=== PATIENT | female | born 1980 | race Two or more races ===

== ENCOUNTER 2019-04-20 08:00 | Outpatient (CLI) | payer OTHER | END 2019-04-20 23:59 | disposition home or self-care (01) | LOC: LAB.WCP 08:00 | PROVIDERS: ATTEND Physician Assistant | DX: Z33.1 Pregnant state, incidental (principal) | CPT/HCPCS: 36415; 84702 ==

== ENCOUNTER 2019-05-09 07:03 | Outpatient (CLI) | payer OTHER ==
--- NOTE | 2019-05-11 09:45 | Ultrasound Report ---
Reason: Procedure Date: 05/09/2019 Accession Number: [id number] / [id number] Procedure: US - OB Detailed Eval CPT Code: FULL RESULT: EXAM: COMPLETE OBSTETRICAL ULTRASOUND EXAM DATE: 05/09/2019 07:00 AM. CLINICAL HISTORY: anatomic survey. COMPARISON: None. TECHNIQUE: Real-time sonographic evaluation of the fetus performed by the ramp manager. Multiple circulation sales representative static images were saved for review. DATING: Established EGA 23 weeks 2 days with MANUEL 09/03/2019 based on provider stated and LMP. EGA 19 weeks 6 days with MANUEL 09/27/2019 based on the current ultrasound. GENERAL EVALUATION Castillo . Cardiac activity: 155 bpm. movement: Visualized. Presentation: Cephalic. Placenta: Anterior right position. No evidence for previa. Umbilical cord: 3 vessel cord. Central placental cord origin. Amniotic fluid: Subjectively normal. MVP 5.1 cm. Four-quadrant CARMITA 12.3 cm. BIOMETRY Bi-Parietal Diameter (BPD): 4.55 cm, 19 weeks 5 days Head Circumference (HC): 17.18 cm, 19 weeks 5 days Abdominal Circumference (AC): 14.99 cm, 20 weeks 2 days Femur Length (FL): 3.15 cm, 19 weeks 6 days Estimated Weight: 326 g, <3 percentile for 23 weeks 2 days (assigned). Note: Estimated weight of 326 gm is at the 38th percentile using 19 weeks 6 days (biometry by ultrasound today). ANATOMY The intracranial structures, profile, face/nose/lips, spine, 4 chamber heart and outflow tracts, stomach, abdominal wall and cord insertion, diaphragm, kidneys, bladder, and extremities were visualized and demonstrate no abnormality. MATERNAL STRUCTURES Uterus: Unremarkable. Cervix: Long and closed. Transabdominal length 5.3 cm. Right ovary/adnexa: Unremarkable. Left ovary/adnexa: Unremarkable. Free fluid: None. IMPRESSION: 1. Castillo live intrauterine with gestational age 23 weeks 2 days based on provider stated/LMP. Assigned dates are discordant with today's biometry by ultrasound which is delayed by 3 weeks 3 days, favoring incorrect dates. 2. Estimated weight is less than 3rd percentile for assigned dating. Estimated weight is at the 38th percentile using 19 weeks 6 days (biometry by US today). 3. Normal anatomic survey. No anatomic abnormalities are detected at this time. RADIA
== END 2019-05-09 07:04 | disposition home or self-care (01) ==
LOC: DI 07:03
PROVIDERS: ATTEND Obstetrics & Gynecology
DX: Z34.90 Encounter for supervision of normal pregnancy, unspecified, unspecified trimester (principal)
CPT/HCPCS: 76811

== ENCOUNTER 2019-05-16 08:00 | Outpatient (CLI) | payer OTHER ==
[2019-05-16 14:31] LABS: MUDS CUTOFF CONCENTRATIONS CUTOFF CONC BELOW:
[2019-05-16 14:57] LABS: BILIRUBIN,URINE NEGATIVE (NEGATIVE); GLUCOSE, URINE (UA) NEGATIVE (NEGATIVE); KETONES,URINE (UA) NEGATIVE (NEGATIVE); LEUKOCYTE ESTERASE, URINE NEGATIVE (NEGATIVE); NITRITE,URINE NEGATIVE (NEGATIVE); OCCULT BLOOD,URINE NEGATIVE (NEGATIVE); PROTEIN,URINE NEGATIVE (NEGATIVE); UROBILINOGEN,URINE 0.2 (NORMAL) E.U./dL (NORMAL)
[2019-05-16 15:03] LABS: CLARITY,URINE CLEAR (CLEAR)
[2019-05-16 15:08] LABS: AMPHETAMINE SCREEN,URINE NEGATIVE (NEGATIVE); BENZODIAZEPINES SCREEN, URINE NEGATIVE (NEGATIVE); COCAINE SCREEN URINE NEGATIVE (NEGATIVE); METHADONE SCREEN, URINE NEGATIVE (NEGATIVE); METHAMPHETAMINES SCREEN, URINE NEGATIVE (NEGATIVE); OPIATE SCREEN, URINE NEGATIVE (NEGATIVE); OXYCODONE SCREEN, URINE NEGATIVE (NEGATIVE); PROPOXYPHENE SCREEN, URINE NEGATIVE (NEGATIVE); TRICYCLIC ANTIDEPRESSANT,URINE NEGATIVE (NEGATIVE)
[2019-05-16 15:32] LABS: BACTERIA,URINE None Seen /HPF (None Seen); RBC,URINE None Seen /HPF (0-5); SQUAMOUS EPITHELIAL CELL,UR FEW Squamous (<= Few)
== END 2019-05-16 23:59 | disposition home or self-care (01) ==
LOC: LAB.R 08:00
PROVIDERS: ATTEND Obstetrics & Gynecology
DX: Z36.89 Encounter for other specified antenatal screening (principal)
CPT/HCPCS: 80306; 81001; 87086

== ENCOUNTER 2019-05-16 08:00 | Outpatient (CLI) | payer OTHER ==
[2019-05-16 22:34] LABS: TRICHOMONAS VAGINALIS DNA NEGATIVE (NEGATIVE)
== END 2019-05-16 23:59 | disposition home or self-care (01) ==
LOC: LAB.R 08:00
PROVIDERS: ATTEND Obstetrics & Gynecology
DX: Z36.89 Encounter for other specified antenatal screening (principal)
CPT/HCPCS: 87491; 87591; 87661

== ENCOUNTER 2019-05-16 12:26 | Outpatient (CLI) | payer OTHER ==
[2019-05-16 13:00] LABS: BASOPHILS # (AUTO) 0.1 10^3/uL (0.0-0.1); BASOPHILS % (AUTO) 0.4 %; EOSINOPHILS % (AUTO) 0.2 %; HGB - HEMOGLOBIN 13.1 g/dL (12.0-16.0); LYMPHOCYTES # (AUTO) 1.5 10^3/uL (1.5-3.5); MEAN CORPUSCULAR HEMOGLOBIN 29.9 pg (27.0-31.0); MEAN CORPUSCULAR HGB CONC 34.1 g/dL (32.0-36.0); MEAN CORPUSCULAR VOLUME 87.7 fL (81.0-99.0); MEAN PLATELET VOLUME 9.9 fL (7.9-10.8); MONOCYTES # (AUTO) 0.8 10^3/uL (0.0-1.0); NEUTROPHILS # (AUTO) 10.4 10^3/uL (1.5-6.6); NEUTROPHILS % (AUTO) 80.9 %; PLT - PLATELET COUNT 206 10^3/uL (130-450); RED BLOOD COUNT 4.38 10^6/uL (4.20-5.40); RED CELL DISTRIBUTION WIDTH 13.5 % (12.0-15.0); WHITE BLOOD COUNT 12.8 x10^3/uL (4.8-10.8)
[2019-05-17 11:48] LABS: HEPATITIS B SURFACE ANTIGEN NON-REACTIVE (NON-REACTIVE); HEPATITIS C ANTIBODY NON-REACTIVE (NON-REACTIVE)
[2019-05-17 14:15] LABS: HIV AG/AB 4TH GEN NON-REACTIVE (NON-REACTIVE)
== END 2019-05-16 12:27 | disposition home or self-care (01) ==
LOC: LAB 12:26
PROVIDERS: ATTEND Obstetrics & Gynecology
DX: Z36.89 Encounter for other specified antenatal screening (principal)
CPT/HCPCS: 36415; 80306; 81001; 81003; 81599; 85025; 86592; 86762; 86803; 86850; 86900; 86901; 87086; 87340; 87389; 87491; 87591; 87661

== ENCOUNTER 2019-06-28 07:21 | Outpatient (CLI) | payer OTHER ==
[2019-06-28 09:00] LABS: HGB - HEMOGLOBIN 12.4 g/dL (12.0-16.0); MEAN CORPUSCULAR HEMOGLOBIN 29.2 pg (27.0-31.0); MEAN CORPUSCULAR HGB CONC 33.2 g/dL (32.0-36.0); MEAN CORPUSCULAR VOLUME 88.2 fL (81.0-99.0); MEAN PLATELET VOLUME 10.5 fL (7.9-10.8); RED BLOOD COUNT 4.24 10^6/uL (4.20-5.40); RED CELL DISTRIBUTION WIDTH 13.8 % (12.0-15.0); WHITE BLOOD COUNT 11.8 x10^3/uL (4.8-10.8)
[2019-06-28 11:26] LABS: HB2 TOTAL 12.7 g/dL; HEMOGLOBIN A1C 0.49 g/dL; HEMOGLOBIN A1C % 5.7 % (4.6-6.2)
== END 2019-06-28 07:22 | disposition home or self-care (01) ==
LOC: LAB 07:21
PROVIDERS: ATTEND Obstetrics & Gynecology
DX: O99.810 Abnormal glucose complicating pregnancy (principal); Z3A.00 Weeks of gestation of pregnancy not specified
CPT/HCPCS: 36415; 82950; 83036; 85027

== ENCOUNTER 2019-07-08 07:51 | Outpatient (CLI) | payer OTHER | END 2019-07-08 07:52 | disposition home or self-care (01) | LOC: LAB 07:51 | PROVIDERS: ATTEND Obstetrics & Gynecology | DX: R73.02 Impaired glucose tolerance (oral) (principal) | CPT/HCPCS: 36415; 82951; 82952 ==

== ENCOUNTER 2019-08-30 08:00 | Outpatient (CLI) | payer OTHER ==
[2019-08-30 20:50] LABS: TRICHOMONAS VAGINALIS DNA NEGATIVE (NEGATIVE)
== END 2019-08-30 23:59 | disposition home or self-care (01) ==
LOC: LAB.R 08:00
PROVIDERS: ATTEND Nurse Practitioner Obstetrics & Gynecology
DX: Z36.85 Encounter for antenatal screening for Streptococcus B (principal); Z36.89 Encounter for other specified antenatal screening
CPT/HCPCS: 87491; 87591; 87661; 87797

== ENCOUNTER 2019-10-01 11:51 | Outpatient (CLI) | payer OTHER ==
[2019-10-01 12:18] VITALS: BP 137/80
--- NOTE | 2019-10-01 23:55 | PROVIDER PROGRESS NOTE ---
- HPI Current : Current EDU 09/27/19 Gestation 40 Weeks and 4 Days 1 Para 0 Vital Signs Temperature 98.6 F 10/01/19 12:05 Heart Rate 76 10/01/19 12:05 Respiratory Rate 18 10/01/19 12:05 Blood Pressure 138/90 H 10/01/19 12:05 Temperature 98.6 F 10/01/19 12:05 Heart Rate 76 10/01/19 12:05 Respiratory Rate 18 10/01/19 12:05 Blood Pressure 137/80 H 10/01/19 12:17 O2 Saturation - Exam GEN: mild distress ABD: gravid, S&NT/ND NEURO: A&O PSYCH: interactive affect Cervical exam: 0.5/20/-3 per RN exam EFM 130 mod [place] 15x15 accels no decels TOCO: Q10 min - Procedures NST Procedure: Cat I tracing Service Date of procedure: 10/01/19 Findings: Early labor Cat I tracing - Plan Plan: Declined therapeutic rest Declined admission for augmentation; desires natural progression Cat I tracing Early/threatened labor Discharged to home w/ warning signs reviewed
== END 2019-10-01 13:00 | disposition home or self-care (01) ==
LOC: WFO 11:51 → FBP 11:53 → WFO 13:00
PROVIDERS: ATTEND Obstetrics & Gynecology
DX: O47.03 False labor before 37 completed weeks of gestation, third trimester (principal); Z3A.40 40 weeks gestation of pregnancy
CPT/HCPCS: 99212; 99213

== ENCOUNTER 2019-10-02 08:32 | Inpatient (IN) | payer OTHER ==
[2019-10-02] MEDS ORDERED: OXYTOCIN/SODIUM CHLORIDE 500 ML IV PRN (11:51)
[2019-10-02] MEDS ORDERED: METOCLOPRAMIDE 10 MG TABLET PO PRN (11:51)
[2019-10-02] MEDS ORDERED: METHYLERGONOVINE 0.2 MG/ML VIAL IM PRN (11:51)
[2019-10-02] MEDS ORDERED: CARBOPROST TROMETHAMINE 250 MCG/ML AMP IM PRN (11:51)
[2019-10-02] MEDS ORDERED: ONDANSETRON ODT 4 MG TABLET TL PRN (11:51)
[2019-10-02] MEDS ORDERED: SODIUM CHLORIDE FLUSH 0.9% 10 ML SYRINGE IVP PRN (11:51)
[2019-10-02] MEDS ORDERED: METOCLOPRAMIDE 10 MG/2 ML VIAL IVP PRN ×2 (11:51→15:51)
[2019-10-02] MEDS ORDERED: ONDANSETRON 4 MG/2 ML VIAL IVP PRN ×2 (11:51→15:51)
[2019-10-02 11:59] LABS: BASOPHILS % (AUTO) 0.2 %; HGB - HEMOGLOBIN 11.8 g/dL (12.0-16.0); LYMPHOCYTES # (AUTO) 1.1 10^3/uL (1.5-3.5); LYMPHOCYTES % (AUTO) 7.4 %; MEAN CORPUSCULAR HEMOGLOBIN 27.6 pg (27.0-31.0); MEAN CORPUSCULAR HGB CONC 33.7 g/dL (32.0-36.0); MEAN CORPUSCULAR VOLUME 81.8 fL (81.0-99.0); MEAN PLATELET VOLUME 11.6 fL (7.9-10.8); MONOCYTES # (AUTO) 0.9 10^3/uL (0.0-1.0); MONOCYTES % (AUTO) 5.9 %; NEUTROPHILS # (AUTO) 12.7 10^3/uL (1.5-6.6); PLT - PLATELET COUNT 152 10^3/uL (130-450); RED BLOOD COUNT 4.28 10^6/uL (4.20-5.40); RED CELL DISTRIBUTION WIDTH 17.2 % (12.0-15.0); WHITE BLOOD COUNT 14.8 x10^3/uL (4.8-10.8)
[2019-10-02] MEDS ORDERED: OXYTOCIN/SODIUM CHLORIDE 500 ML IV SCH (12:00)
[2019-10-02] MEDS ORDERED: miSOPROStoL 200 MCG TABLET PR ONE (12:00)
--- NOTE | 2019-10-02 12:07 | HISTORY & PHYSICAL EXAMINATION ---
Admit History - : 1 Parity: 0 Care: positive: [facility] Risk/History: positive: None Complications This : positive: None Smoking Status: Never smoker - Mother's Labs Mother's Blood Type: positive: O Mother's RH: positive: Positive GBS: positive: Group B Step Negative Rubella Status: positive: Equivocal - Other Maternal History Other Maternal History: Patient is a 38 yo who presented with painful contractions at 40+5 wga Has had prodromal labor for several days. Initial SVE was 270/-3. Given pending post-dates status, as well as level of discomfort and prolonged latent stage, she was offered admission for cervical ripening/induction. She is willing to be admitted for this purpose. No LOF or VB. Endorses FM. has been complicated by unsure dating ( based on 19w6d us) abnormal glucola with normal 3H OGTT and equivocal immune stats. She is GBS negative and Rh positive. MANUEL 09/27/19 based on 19 weeks us LMP 11/27/2018---> MANUEL 09/03/19 US on 05/09/19 at 19w6d --> MANUEL 09/27/19 (definitive) O pos/equivocal rubella status FAS 3VC/anterior/wnl/36%ile Glucola 182 3H GTT 152 168 137 GBS neg HIV neg RPR neg GCCT neg/neg HepBsAg neg TDaP 129/19 Flu declined HSV: denies Meds/Allgy - Allergies Allergies/Adverse Reactions: Allergies Allergy/AdvReac Type Severity Reaction Status Date / Time No Known Drug Allergies Allergy Verified 10/02/19 12:07 Review of Systems - Other Findings Other Findings: As per HPI, remaining systems are normal Physical - Abdominal Exam Vital Signs: Temp Pulse Resp BP Pulse Ox 97.7 F 96 17 137/85 H 100 10/02/19 11:45 10/02/19 11:45 10/02/19 11:45 10/02/19 11:45 10/02/19 11:45 Contraction Frequency (min/apart): Q7-10 min Contraction Intensity: positive: Moderate - Monitoring Heart Rate Baseline: 125 mod [place] 15x15 accels no decels Strip Review: positive: Category I - Presentation Presentation: positive: Vertex - Vaginal Exam Membranes: positive: Membranes intact Dilation (in cm): 2 at intake; 3.5 with placement of Beatty balloon Effacement (%): 90 Station: positive: -2 Cervical Position: positive: Midposition - Speculum Exam Speculum Exam Performed: positive: No - Other Notes Labor Progress Note/Additional Text: Patient continued to contract painfully with infrequent contractions. Agreed to Beatty balloon placement SVE 3.5/90/-2 Beatty placed with 60 cc NS in uterine and vaginal balloons. Catheter placed on tension Plan for Labor - Plan For Labor Plan for Labor: IOL: 38 yo at 40+4 wga Cervical ripening with Beatty balloon placed Will likely meet criteria for pitocin once balloon falls out GBS negative FWB: vertex, appropriately grown, GBS neg, Cat I tracing - Cont for 1 hour post balloon placement then intermittent PAIN: Wants to avoid intervention -Epidural upon patient request -Fentanyl to max dose of 200 mcg and not after 7 cm dilation Admit to observation for cervical ripening Transition to in-patient with active or ruptured. Needs MMR post-delivery
[2019-10-02] MEDS ORDERED: ROPIVACAINE 0.2% 200 MG/100 ML BAG EP ONE (15:10)
[2019-10-02] MEDS ORDERED: LIDOCAINE-MPF 1% 30 ML VIAL ONE (15:10)
[2019-10-02] MEDS ORDERED: fentaNYL 100 MCG/2 ML VIAL ONE (15:16)
[2019-10-02] MEDS ORDERED: diphenhydrAMINE INJ 50 MG/ML VIAL IVP PRN (15:51)
[2019-10-02] MEDS ORDERED: NALOXONE 0.4 MG/ML VIAL IVP PRN (15:51)
[2019-10-02] MEDS ORDERED: LACTATED RINGERS 500 ML IV ONE (15:51)
[2019-10-02] MEDS ORDERED: ePHEDrine 50 MG/ML VIAL IVP PRN (15:51)
[2019-10-02] MEDS ORDERED: ROPIVACAINE 0.2% 200 MG/100 ML BAG EP PRN (15:51)
[2019-10-02] MEDS ORDERED: NALBUPHINE 10 MG/ML AMP IVP PRN (15:51)
[2019-10-02] MEDS: LACTATED RINGERS 1,000 ML IV SCH ×2 (16:44→18:32)
[2019-10-02] MEDS ORDERED: SODIUM CHLORIDE FLUSH 0.9% 10 ML SYRINGE IVP SCH (17:00)
--- NOTE | 2019-10-02 19:01 | PROVIDER PROGRESS NOTE ---
Subjective - Prog Note Date Prog Note Date: 10/02/19 Prog Note Time: 18:54 - Subjective Subjective: Received telephone update regarding patient's EFM and presented at bedside. Patient underwent epidural placement with Beatty insertion. After catheterizat ion, baby had brief decel and then became tachycardic with baseline in the 160s. Retained moderate variability with recurrent late appearing decels. TOCO showed ctx to be Q7-8 cm Maternal temp wnl althoough showing rigors. SVE 6/90/-2, stretchy with suspected OP position given position high on pubic bone with ample posterior space. Had fluid bolus 500 cc LR with no relief of tachycardia. AROM with passage of clear fluid. Cont fluid bolus Return to baseline of 150s, moderate variability, accels. Possibly early appearing decels TOCO now showing ctx Q6 Once tracing remains stable over extended period of time, will start pitocin to advance labor. Reviewed possible position changes to facilitate positioning Objective - Vital Signs/Intake & Output Vital Signs: Vital Signs x48h Temp Pulse Resp BP Pulse Ox 10/02/19 11:45 97.7 F 96 17 137/85 H 100 Intake & Output: Intake & Output 09/29/19 09/30/19 10/01/19 10/02/19 23:59 23:59 23:59 23:59 Intake Total 180 Output Total 100 Balance 80 - Lab Results Fish Bones: 10/02/19 11:15 Other Labs: Lab Results x24hrs 10/02/19 Range/Units 11:15 WBC 14.8 H (4.8-10.8) x10^3/uL RBC 4.28 (4.20-5.40) 10^6/uL Hgb 11.8 L (12.0-16.0) g/dL Hct 35.0 L (37.0-47.0) % MCV 81.8 (81.0-99.0) fL MCH 27.6 (27.0-31.0) pg MCHC 33.7 (32.0-36.0) g/dL RDW 17.2 H (12.0-15.0) % Plt Count 152 (130-450) 10^3/uL MPV 11.6 H (7.9-10.8) fL Neut # (Auto) 12.7 H (1.5-6.6) 10^3/uL Lymph # (Auto) 1.1 L (1.5-3.5) 10^3/uL [place] # (Auto) 0.9 (0.0-1.0) 10^3/uL Eos # (Auto) 0.0 (0.0-0.7) 10^3/uL Baso # (Auto) 0.0 (0.0-0.1) 10^3/uL Absolute Nucleated RBC 0.00 x10^3/uL Nucleated RBC % 0.0 /100WBC
--- NOTE | 2019-10-02 21:29 | PROVIDER PROGRESS NOTE ---
Subjective - Prog Note Date Prog Note Date: 10/02/19 Prog Note Time: 21:28 - Subjective Subjective: Comfortable with epidural Prior tachycardia resolved; EFM 145 mod [place] 15x15 accels no decels TOCO: Q4-5 min No augmentation at present SVE 7/C/0 Small increase in dialtion but progress in terms of station and effacement Consider augmentation if without significant change at next exam Objective - Vital Signs/Intake & Output Vital Signs: Vital Signs x48h Temp Pulse Resp BP 10/02/19 19:00 98.6 F 92 16 133/87 H Intake & Output: Intake & Output 09/29/19 09/30/19 10/01/19 10/02/19 23:59 23:59 23:59 23:59 Intake Total 580 Output Total 100 Balance 480 - Lab Results Fish Bones: 10/02/19 11:15 Other Labs: Lab Results x24hrs 10/02/19 Range/Units 11:15 WBC 14.8 H (4.8-10.8) x10^3/uL RBC 4.28 (4.20-5.40) 10^6/uL Hgb 11.8 L (12.0-16.0) g/dL Hct 35.0 L (37.0-47.0) % MCV 81.8 (81.0-99.0) fL MCH 27.6 (27.0-31.0) pg MCHC 33.7 (32.0-36.0) g/dL RDW 17.2 H (12.0-15.0) % Plt Count 152 (130-450) 10^3/uL MPV 11.6 H (7.9-10.8) fL Neut # (Auto) 12.7 H (1.5-6.6) 10^3/uL Lymph # (Auto) 1.1 L (1.5-3.5) 10^3/uL [place] # (Auto) 0.9 (0.0-1.0) 10^3/uL Eos # (Auto) 0.0 (0.0-0.7) 10^3/uL Baso # (Auto) 0.0 (0.0-0.1) 10^3/uL Absolute Nucleated RBC 0.00 x10^3/uL Nucleated RBC % 0.0 /100WBC
[2019-10-03] MEDS: LACTATED RINGERS 1,000 ML IV SCH (00:56)
[2019-10-03] MEDS ORDERED: LIDOCAINE-MPF 1% 30 ML VIAL ONE (05:52)
--- NOTE | 2019-10-03 06:26 | CONSULTATION NOTE ---
Consultation Report: I was called in this morning at about 0530 and told that patient was having pain. This patient has had a great relief since the epidural was placed. I came in and checked the patient's sensory level and it is down to L2-L3. I checked her edpiural tubing and it turns out that her epidural catheter tubing is disconnected from the yellow connector/hub and just adhered to the hub with a piece of tape. I cleaned the catheter tubing about 50 to 10 cm vigorously with alcohol pads, cleaned the hub with alcohol pads, removed about 2cm of the catheter tip using sterile gloves and sterile scissors. Inserted the catheter tubing back into the yellow hub. I aspirated the epidural catheter and the aspiration was negative off of csf/blood. I bolused her with 6ml of 1% lidocain. I also noticed that the pump setting had changed from intermittent boluses to continuous rate. I changed the setting back to intermittent boluses and connected the pump tubing to the catheter. I watched for the leaks at the connector and there were none. I asked the RN to watch the tubing for leaks. The patient is reporting relief.
[2019-10-03] MEDS ORDERED: LABETALOL 20 MG/4 ML SYRINGE IVP PRN ×2 (06:54→07:35)
[2019-10-03] MEDS ORDERED: SODIUM CHLORIDE FLUSH 0.9% 10 ML SYRINGE IVP PRN ×2 (06:54→14:17)
[2019-10-03] MEDS ORDERED: LACTATED RINGERS 1,000 ML IV SCH ×2 (07:00→15:00)
[2019-10-03] MEDS: MAGNESIUM SULFATE 2 GRAM 2 GM/50 ML BAG IV SCH ×2 (07:25→07:45)
[2019-10-03] MEDS: MAGNESIUM SULFATE IN WATER 20 GM/500 ML IV.SOLN IV SCH ×2 (08:05→14:58)
[2019-10-03 08:06] LABS: BASOPHILS # (AUTO) 0.1 10^3/uL (0.0-0.1); BASOPHILS % (AUTO) 0.3 %; EOSINOPHILS # (AUTO) 0.1 10^3/uL (0.0-0.7); EOSINOPHILS % (AUTO) 0.6 %; HGB - HEMOGLOBIN 12.2 g/dL (12.0-16.0); LYMPHOCYTES % (AUTO) 4.6 %; MEAN CORPUSCULAR HEMOGLOBIN 27.6 pg (27.0-31.0); MEAN CORPUSCULAR HGB CONC 33.9 g/dL (32.0-36.0); MEAN CORPUSCULAR VOLUME 81.4 fL (81.0-99.0); MEAN PLATELET VOLUME 12.1 fL (7.9-10.8); MONOCYTES # (AUTO) 1.4 10^3/uL (0.0-1.0); MONOCYTES % (AUTO) 6.8 %; NEUTROPHILS # (AUTO) 18.2 10^3/uL (1.5-6.6); NEUTROPHILS % (AUTO) 86.8 %; PLT - PLATELET COUNT 138 10^3/uL (130-450); RED BLOOD COUNT 4.42 10^6/uL (4.20-5.40)
[2019-10-03] MEDS ORDERED: MAGNESIUM SULFATE IN WATER 20 GM/500 ML IV.SOLN IV ONE (08:10)
[2019-10-03 08:15] LABS: URIC ACID 8.2 mg/dL (2.6-7.2)
[2019-10-03 08:48] LABS: RBC MORPHOLOGY (MULTIPLE) 2+ ANISOCYTOSIS (NORMAL)
--- NOTE | 2019-10-03 08:51 | PROVIDER PROGRESS NOTE ---
Subjective - Prog Note Date Prog Note Date: 10/03/19 Prog Note Time: 08:49 - Subjective Subjective: Delayed entry: patient developed severe range blood pressures as early as 5 am; provider not alerted for several hours Given IV labetalol ans started on magnesium BPs now in high mild range Reported to have been complete and started pushing On provider evaluation after 7 am; persistent posterior lip noted IUPC was placed to determine adequacy of contraction pattern Not consistently meeting 225-250 MVU; pitocin was increased Cont to monitor Patient feeling pressure and urge to push. Afebrile/ No RITTER/vision change/RUQ pain Objective - Vital Signs/Intake & Output Vital Signs: Vital Signs x48h Temp Pulse Resp BP 10/03/19 05:00 99.1 F 84 16 160/86 H 10/03/19 03:00 99.5 F 85 10/03/19 01:00 99.1 F 87 Intake & Output: Intake & Output 09/30/19 10/01/19 10/02/19 10/03/19 23:59 23:59 23:59 23:59 Intake Total 580 677.5 Output Total 100 400 Balance 480 277.5 - Lab Results Fish Bones: 10/03/19 07:09 Other Labs: Lab Results x24hrs 10/03/19 10/03/19 10/03/19 Range/Units 07:09 07:09 07:09 WBC 21.0 H (4.8-10.8) x10^3/uL RBC 4.42 (4.20-5.40) 10^6/uL Hgb 12.2 (12.0-16.0) g/dL Hct 36.0 L (37.0-47.0) % MCV 81.4 (81.0-99.0) fL MCH 27.6 (27.0-31.0) pg MCHC 33.9 (32.0-36.0) g/dL RDW 17.0 H (12.0-15.0) % Plt Count 138 (130-450) 10^3/uL MPV 12.1 H (7.9-10.8) fL Neut # (Auto) 18.2 H (1.5-6.6) 10^3/uL Lymph # (Auto) 1.0 L (1.5-3.5) 10^3/uL [place] # (Auto) 1.4 H (0.0-1.0) 10^3/uL Eos # (Auto) 0.1 (0.0-0.7) 10^3/uL Baso # (Auto) 0.1 (0.0-0.1) 10^3/uL Absolute Nucleated RBC 0.00 x10^3/uL Nucleated RBC % 0.0 /100WBC Manual Slide Review Indicated RBC Morph Micro Appear 2+ ANISOCYTOSIS (NORMAL) Uric Acid 8.2 H (2.6-7.2) mg/dL AST 25 (10-42) IU/L Lactate Dehydrogenase 180 (91-225) IU/L 10/02/19 Range/Units 11:15 WBC 14.8 H (4.8-10.8) x10^3/uL RBC 4.28 (4.20-5.40) 10^6/uL Hgb 11.8 L (12.0-16.0) g/dL Hct 35.0 L (37.0-47.0) % MCV 81.8 (81.0-99.0) fL MCH 27.6 (27.0-31.0) pg MCHC 33.7 (32.0-36.0) g/dL RDW 17.2 H (12.0-15.0) % Plt Count 152 (130-450) 10^3/uL MPV 11.6 H (7.9-10.8) fL Neut # (Auto) 12.7 H (1.5-6.6) 10^3/uL Lymph # (Auto) 1.1 L (1.5-3.5) 10^3/uL [place] # (Auto) 0.9 (0.0-1.0) 10^3/uL Eos # (Auto) 0.0 (0.0-0.7) 10^3/uL Baso # (Auto) 0.0 (0.0-0.1) 10^3/uL Absolute Nucleated RBC 0.00 x10^3/uL Nucleated RBC % 0.0 /100WBC Manual Slide Review RBC Morph Micro Appear (NORMAL) Uric Acid (2.6-7.2) mg/dL AST (10-42) IU/L Lactate Dehydrogenase (91-225) IU/L
[2019-10-03] MEDS ORDERED: SODIUM CHLORIDE FLUSH 0.9% 10 ML SYRINGE IVP SCH ×2 (09:00→17:00)
[2019-10-03 11:13] LABS: CALCIUM 8.7 mg/dL (8.5-10.3); CREATININE 1.4 mg/dL (0.4-1.0)
--- NOTE | 2019-10-03 11:34 | PROVIDER PROGRESS NOTE ---
Subjective - Prog Note Date Prog Note Date: 10/03/19 Prog Note Time: 11:32 - Subjective Subjective: Patient has been pushing more than 3:30 hours Poor descent Has been adequate with regard to MVU Reviewed progress with patient. She is exhausted and feels ready to move forward with primary Cat I tracing Discontinue pitocin BP within mild/normal range Proceed to OR Objective - Vital Signs/Intake & Output Vital Signs: Vital Signs x48h Temp Pulse Resp BP 10/03/19 05:00 99.1 F 84 16 160/86 H Intake & Output: Intake & Output 09/30/19 10/01/19 10/02/19 10/03/19 23:59 23:59 23:59 23:59 Intake Total 580 677.5 Output Total 100 400 Balance 480 277.5 - Lab Results Fish Bones: 10/03/19 07:09 10/03/19 07:09 Other Labs: Lab Results x24hrs 10/03/19 10/03/19 10/03/19 Range/Units 07:09 07:09 07:09 WBC 21.0 H (4.8-10.8) x10^3/uL RBC 4.42 (4.20-5.40) 10^6/uL Hgb 12.2 (12.0-16.0) g/dL Hct 36.0 L (37.0-47.0) % MCV 81.4 (81.0-99.0) fL MCH 27.6 (27.0-31.0) pg MCHC 33.9 (32.0-36.0) g/dL RDW 17.0 H (12.0-15.0) % Plt Count 138 (130-450) 10^3/uL MPV 12.1 H (7.9-10.8) fL Neut # (Auto) 18.2 H (1.5-6.6) 10^3/uL Lymph # (Auto) 1.0 L (1.5-3.5) 10^3/uL [place] # (Auto) 1.4 H (0.0-1.0) 10^3/uL Eos # (Auto) 0.1 (0.0-0.7) 10^3/uL Baso # (Auto) 0.1 (0.0-0.1) 10^3/uL Absolute Nucleated RBC 0.00 x10^3/uL Nucleated RBC % 0.0 /100WBC Manual Slide Review Indicated RBC Morph Micro Appear 2+ ANISOCYTOSIS (NORMAL) Sodium 131 L (135-145) mmol/L Potassium 3.4 L (3.5-5.0) mmol/L Chloride 103 (101-111) mmol/L Carbon Dioxide 15 L (21-32) mmol/L Anion Gap 13.0 (6-13) BUN 21 H (6-20) mg/dL Creatinine 1.4 H (0.4-1.0) mg/dL Estimated GFR (MDRD) 43 L (>89) Glucose 90 (70-100) mg/dL Uric Acid 8.2 H (2.6-7.2) mg/dL Calcium 8.7 (8.5-10.3) mg/dL AST 25 (10-42) IU/L Lactate Dehydrogenase (91-225) IU/L 10/03/19 10/02/19 Range/Units 07:09 11:15 WBC 14.8 H (4.8-10.8) x10^3/uL RBC 4.28 (4.20-5.40) 10^6/uL Hgb 11.8 L (12.0-16.0) g/dL Hct 35.0 L (37.0-47.0) % MCV 81.8 (81.0-99.0) fL MCH 27.6 (27.0-31.0) pg MCHC 33.7 (32.0-36.0) g/dL RDW 17.2 H (12.0-15.0) % Plt Count 152 (130-450) 10^3/uL MPV 11.6 H (7.9-10.8) fL Neut # (Auto) 12.7 H (1.5-6.6) 10^3/uL Lymph # (Auto) 1.1 L (1.5-3.5) 10^3/uL [place] # (Auto) 0.9 (0.0-1.0) 10^3/uL Eos # (Auto) 0.0 (0.0-0.7) 10^3/uL Baso # (Auto) 0.0 (0.0-0.1) 10^3/uL Absolute Nucleated RBC 0.00 x10^3/uL Nucleated RBC % 0.0 /100WBC Manual Slide Review RBC Morph Micro Appear (NORMAL) Sodium (135-145) mmol/L Potassium (3.5-5.0) mmol/L Chloride (101-111) mmol/L Carbon Dioxide (21-32) mmol/L Anion Gap (6-13) BUN (6-20) mg/dL Creatinine (0.4-1.0) mg/dL Estimated GFR (MDRD) (>89) Glucose (70-100) mg/dL Uric Acid (2.6-7.2) mg/dL Calcium (8.5-10.3) mg/dL AST (10-42) IU/L Lactate Dehydrogenase 180 (91-225) IU/L
[2019-10-03] MEDS ORDERED: LIDOCAINE 1%-EPI 1:100000 20 ML MDV ONE (11:57)
[2019-10-03] MEDS ORDERED: ceFAZolin 2 GM in SODIUM CHLORIDE 0.9% 100ML 100 ML IV ONE (12:00)
[2019-10-03] MEDS ORDERED: CITRIC ACID/SODIUM CITRATE 15 ML UDC PO ONE (12:00)
[2019-10-03] MEDS ORDERED: LIDOCAINE-MPF 2% 5 ML VIAL IM ONE (12:03)
[2019-10-03] MEDS ORDERED: fentaNYL 100 MCG/2 ML VIAL IVP ONE (12:03)
[2019-10-03] MEDS ORDERED: ONDANSETRON 4 MG/2 ML VIAL IVP ONE (12:03)
[2019-10-03] MEDS ORDERED: KETOROLAC 30 MG/ML VIAL IVP ONE (12:03)
[2019-10-03] MEDS ORDERED: ePHEDrine 50 MG/ML VIAL IVP ONE (12:03)
[2019-10-03] MEDS ORDERED: MORPHINE PF 5 MG/10 ML AMP EP ONE (12:03)
[2019-10-03] MEDS ORDERED: LIDOCAINE 1%-EPI 1:100000 20 ML MDV SUBQ ONE (12:23)
[2019-10-03] MEDS ORDERED: LACTATED RINGERS 1,000 ML IV ONE ×2 (12:23→13:22)
[2019-10-03] MEDS ORDERED: LIDOCAINE 1% 50 ML MDV SUBQ ONE (13:51)
[2019-10-03] MEDS ORDERED: WITCH HAZEL/GLYCERIN 1 PAD TOP PRN (14:17)
--- NOTE | 2019-10-03 14:23 | OPERATIVE REPORT ---
Operative Report - General Admit Date: 10/02/19 Procedure Date: 10/03/19 Planned Procedure: Primary low transverse Pre-Op Diagnosis: IUP at 40+6 wga; second stage arrest, severe GHTN/Preeclampsia Procedure Performed: Primary low transverse Post Op Diagnosis: Same and delivery of term gestation - Procedure Note Primary Surgeon: Gisela Baron MD Secondary Surgeon: Judi Story MD/ Rafa Zhang CNM observing Anesthesia Provider: Nicol Scott CRNA Anesthesia Technique: Epidural Pathology: Placenta for routine discard IV Fluids (mL): 1,300 Estimated Blood Loss (mL): 500 Urine Output (mL): 300 Indications: Patient is a 38 yo admitted at 40+5 wga in prodromal labor for augmentation. She underwent cervical ripening with a Baetty balloon, then underwent artifical rupture of membranes, and then had pitocin augmentation to a max dose of 10 mU/min. Proceeded to complete dilation with a migrating posterior cervical lip. An IPC was placed and adequate contraction pattern was observed. She pushed well for 3.5 hours in total with failure to descend. Decision was amde to proceed with primary . During the course of her labor, she developed blood pressures in the severe range and received at IV antihypertensives on 3 occasions. She was started on a magnesium infusion. R/B/A to the procedure were reviewed. Written informed consent was obtained. Findings: Normal uterus, tubes, and ovaries. Male infant in vertex presentation with molding. Apgars 9/9. Weight pending. Complications: None - Other Other Information/Narrative: Risks benefits and alternatives of the procedure were discussed. Written informed consent was obtained. Patient was taken to the operating room where spinal anesthesia was placed and found to be adequate. She was prepped and draped in the usual sterile fashion in the dorsal supine position with a leftward tilt. Beatty catheter was in place. SCDs were in place and activated. Cefazolin 2 g IV was given as a preoperative antibiotic. Preoperative timeout was performed. A Pfannenstiel incision was made in the skin with a scalpel and carried through the underlying layer of fascia in a combination of sharp and blunt dissection. The fascia was incised in the midline, and the incision was extended laterally with the Burroughs scissors. The superior aspect of the fascial incision was grasped with the Lyndon clamps, elevated, and the underlying rectus muscles were dissected off bluntly and sharply using the Burroughs scissors. Attention was then turned to the inferior aspect of the incision which in a similar fashion was grasped, tented up with Lyndon clamps, and the underlying rectus muscles dissected off bluntly and sharply using Burroughs scissors. The rectus muscles were then in the midline. The peritoneum was identified, tented up, and entered bluntly. The peritoneal incision was extended superiorly and inferiorly with good visualization of the bladder. The bladder that blade was then inserted. A bladder flap was not created. The lower uterine segment of the uterus was identified, and incised in a transverse fashion with a scalpel. The uterus was entered bluntly. The uterine incision was extended in a craniocaudal fashion by manual stretch. The bladder blade was removed. The infant was delivered from from vertex position. Baby was wrapped in a warm sterile towel. Delayed cord clamping was performed. After cessation of pulsations, the cord was clamped x2 and cut. The infant was handed off to the waiting pediatricians. The placenta was removed with manual expression. The uterus was exteriorized and cleared of all clots clots and debris via manual swipe using [place] x2. The uterine incision was then repaired in a running locked fashion using 0 Vicryl suture. The incisoin was reinforced with a running imbricating layer again using 0-Vicryl suture. Excellent hemostasis was obtained. The uterus was returned to the abdomen. The gutters were cleared of all clots and debris. The pelvis was irrigated with warm normal saline. The uterine defect was well visualized in normal anatomic position it was noted again to be hemostatic. The peritoneum was then reapproximated with 2-0 Vicryl in a running fashion. The rectus muscles were then reapproximated using interrupted [id number] sutures using 2-0 Chromic. Good hemostasis was noted. The fascia was then closed using 0 Vicryl in a running fashion starting from the left lateral edge to the midline. A second suture was used to close the fascia in a running fashion starting from the right lateral edge and meeting in the midline, again using 0-Vicryl. A total of 20 cc of 1% lidocaine with epinephrine was injected into the suture line prior to making the incision. The subcutaneous tissue was then irrigated and closed using 2-0 chromic in a running subcutaneous suture. Skin was closed in a running subcuticular suture using 4- 0 Monocryl. Pain management was incomplete and patient received an additional 20 cc of 1% lidocaine with epinephrine was injected during closure. Steri-Strips were applied to reinforce the incsion and dressing was applied. Procedure was well-tolerated and without complication. Sponge lap and needle counts were correct x2. Patient was taken to recovery room in stable condition.
--- NOTE | 2019-10-03 15:12 | PROVIDER PROGRESS NOTE ---
Subjective - Prog Note Date Prog Note Date: 10/03/19 Prog Note Time: 15:12 - Subjective Subjective: Review of labs show creatinine 1.4 and elevated uric acid. Resending CMP/CBC now with mag level Cont magnesium at 2g/hr at current Objective - Vital Signs/Intake & Output Vital Signs: Vital Signs x48h Temp Pulse Resp BP Pulse Ox 10/03/19 14:45 98.2 F 84 16 141/76 H 97 10/03/19 14:40 75 16 140/84 H 99 10/03/19 14:35 98.2 F 82 18 140/88 H 99 10/03/19 14:30 97.7 F 82 17 155/91 H 99 10/03/19 14:25 80 18 155/91 H 98 10/03/19 14:20 84 19 151/94 H 99 10/03/19 14:15 82 17 161/93 H 98 10/03/19 14:12 97.9 F 80 14 159/81 H 98 10/03/19 13:25 79 16 151/94 H 99 Intake & Output: Intake & Output 09/30/19 10/01/19 10/02/19 10/03/19 23:59 23:59 23:59 23:59 Intake Total 580 1021.667 Output Total 100 400 Balance 480 621.667 - Lab Results Fish Bones: 10/03/19 07:09 10/03/19 07:09 Other Labs: Lab Results x24hrs 10/03/19 10/03/19 10/03/19 Range/Units 07:09 07:09 07:09 WBC 21.0 H (4.8-10.8) x10^3/uL RBC 4.42 (4.20-5.40) 10^6/uL Hgb 12.2 (12.0-16.0) g/dL Hct 36.0 L (37.0-47.0) % MCV 81.4 (81.0-99.0) fL MCH 27.6 (27.0-31.0) pg MCHC 33.9 (32.0-36.0) g/dL RDW 17.0 H (12.0-15.0) % Plt Count 138 (130-450) 10^3/uL MPV 12.1 H (7.9-10.8) fL Neut # (Auto) 18.2 H (1.5-6.6) 10^3/uL Lymph # (Auto) 1.0 L (1.5-3.5) 10^3/uL [place] # (Auto) 1.4 H (0.0-1.0) 10^3/uL Eos # (Auto) 0.1 (0.0-0.7) 10^3/uL Baso # (Auto) 0.1 (0.0-0.1) 10^3/uL Absolute Nucleated RBC 0.00 x10^3/uL Nucleated RBC % 0.0 /100WBC Manual Slide Review Indicated RBC Morph Micro Appear 2+ ANISOCYTOSIS (NORMAL) Sodium 131 L (135-145) mmol/L Potassium 3.4 L (3.5-5.0) mmol/L Chloride 103 (101-111) mmol/L Carbon Dioxide 15 L (21-32) mmol/L Anion Gap 13.0 (6-13) BUN 21 H (6-20) mg/dL Creatinine 1.4 H (0.4-1.0) mg/dL Estimated GFR (MDRD) 43 L (>89) Glucose 90 (70-100) mg/dL Uric Acid 8.2 H (2.6-7.2) mg/dL Calcium 8.7 (8.5-10.3) mg/dL AST 25 (10-42) IU/L Lactate Dehydrogenase (91-225) IU/L Blood Type Antibody Screen 10/03/19 10/02/19 Range/Units 07:09 11:15 WBC (4.8-10.8) x10^3/uL RBC (4.20-5.40) 10^6/uL Hgb (12.0-16.0) g/dL Hct (37.0-47.0) % MCV (81.0-99.0) fL MCH (27.0-31.0) pg MCHC (32.0-36.0) g/dL RDW (12.0-15.0) % Plt Count (130-450) 10^3/uL MPV (7.9-10.8) fL Neut # (Auto) (1.5-6.6) 10^3/uL Lymph # (Auto) (1.5-3.5) 10^3/uL [place] # (Auto) (0.0-1.0) 10^3/uL Eos # (Auto) (0.0-0.7) 10^3/uL Baso # (Auto) (0.0-0.1) 10^3/uL Absolute Nucleated RBC x10^3/uL Nucleated RBC % /100WBC Manual Slide Review RBC Morph Micro Appear (NORMAL) Sodium (135-145) mmol/L Potassium (3.5-5.0) mmol/L Chloride (101-111) mmol/L Carbon Dioxide (21-32) mmol/L Anion Gap (6-13) BUN (6-20) mg/dL Creatinine (0.4-1.0) mg/dL Estimated GFR (MDRD) (>89) Glucose (70-100) mg/dL Uric Acid (2.6-7.2) mg/dL Calcium (8.5-10.3) mg/dL AST (10-42) IU/L Lactate Dehydrogenase 180 (91-225) IU/L Blood Type O POSITIVE Antibody Screen NEGATIVE
[2019-10-03] MEDS ORDERED: HYDROmorphone 0.5 MG/0.5 ML SYRINGE IVP PRN (15:31)
[2019-10-03 15:36] LABS: HGB - HEMOGLOBIN 10.9 g/dL (12.0-16.0); MEAN CORPUSCULAR HEMOGLOBIN 25.5 pg (27.0-31.0); MEAN CORPUSCULAR HGB CONC 29.8 g/dL (32.0-36.0); MEAN CORPUSCULAR VOLUME 85.7 fL (81.0-99.0); MEAN PLATELET VOLUME 11.4 fL (7.9-10.8); RED BLOOD COUNT 4.27 10^6/uL (4.20-5.40); RED CELL DISTRIBUTION WIDTH 17.1 % (12.0-15.0); WHITE BLOOD COUNT 20.4 x10^3/uL (4.8-10.8)
[2019-10-03 15:52] LABS: ALBUMIN 2.4 g/dL (3.2-5.5); ALBUMIN/GLOBULIN RATIO 0.9 (1.0-2.2); BILIRUBIN,TOTAL 0.6 mg/dL (0.2-1.0); CREATININE 1.4 mg/dL (0.4-1.0)
[2019-10-03 16:10] LABS: MAGNESIUM 4.6 mg/dL (1.7-2.8)
[2019-10-03] MEDS: ACETAMINOPHEN 325 MG TABLET PO PRN ×2 (17:34→23:03)
[2019-10-03] MEDS: ceFAZolin 2 GM in SODIUM CHLORIDE 0.9% 100ML 100 ML IV SCH (20:15)
[2019-10-03] MEDS: DOCUSATE SODIUM 100 MG CAPSULE PO SCH (23:59)
[2019-10-04] MEDS: MAGNESIUM SULFATE IN WATER 20 GM/500 ML IV.SOLN IV SCH (01:42)
[2019-10-04] MEDS: ceFAZolin 2 GM in SODIUM CHLORIDE 0.9% 100ML 100 ML IV SCH ×2 (03:23→11:16)
[2019-10-04] MEDS: ACETAMINOPHEN 325 MG TABLET PO PRN ×3 (05:17→17:05)
[2019-10-04 05:43] LABS: BASOPHILS # (AUTO) 0.1 10^3/uL (0.0-0.1); BASOPHILS % (AUTO) 0.3 %; HGB - HEMOGLOBIN 10.1 g/dL (12.0-16.0); LYMPHOCYTES # (AUTO) 1.2 10^3/uL (1.5-3.5); LYMPHOCYTES % (AUTO) 6.6 %; MEAN CORPUSCULAR HEMOGLOBIN 26.9 pg (27.0-31.0); MEAN CORPUSCULAR HGB CONC 33.8 g/dL (32.0-36.0); MEAN CORPUSCULAR VOLUME 79.7 fL (81.0-99.0); MEAN PLATELET VOLUME 11.7 fL (7.9-10.8); MONOCYTES # (AUTO) 1.1 10^3/uL (0.0-1.0); MONOCYTES % (AUTO) 5.9 %; NEUTROPHILS # (AUTO) 15.7 10^3/uL (1.5-6.6); NEUTROPHILS % (AUTO) 86.4 %; PLT - PLATELET COUNT 111 10^3/uL (130-450); RED BLOOD COUNT 3.75 10^6/uL (4.20-5.40); RED CELL DISTRIBUTION WIDTH 17.1 % (12.0-15.0); WHITE BLOOD COUNT 18.2 x10^3/uL (4.8-10.8)
[2019-10-04 05:53] LABS: CREATININE 1.3 mg/dL (0.4-1.0)
[2019-10-04] MEDS ORDERED: MAGNESIUM SULFATE IN WATER 20 GM/500 ML IV.SOLN IV SCH (07:00)
[2019-10-04] MEDS: oxyCODONE 5 MG TABLET PO PRN ×5 (07:59→23:37)
[2019-10-04] MEDS: DOCUSATE SODIUM 100 MG CAPSULE PO SCH ×2 (07:59→20:39)
[2019-10-04] MEDS: SIMETHICONE CHEW 80 MG TABLET PO PRN ×2 (07:59→11:59)
[2019-10-04] MEDS: LABETALOL 100 MG TABLET PO SCH ×2 (15:34→20:38)
--- NOTE | 2019-10-04 17:31 | PROVIDER PROGRESS NOTE ---
Subjective - Prog Note Date Prog Note Date: 10/04/19 Prog Note Time: 13:15 - Subjective Subjective: Late entry Patient is postop day 1 status post primary low transverse after second stage arrest. Severe preeclampsia with severe range pressures and elevated creatinine. Magnesium stopped at midday. Blood pressures in mild range. Had been normal until this point. Started on labetalol 100 mg p.o. twice daily. Beatty catheter remains in place. Has nearly a liter of clear light yellow urine accumulating. Patient reports that she has been up and out of bed. Tolerating p.o. Pain well managed on oxycodone and Tylenol. Objective - Vital Signs/Intake & Output Vital Signs: Vital Signs x48h Temp Pulse Resp BP Pulse Ox 10/04/19 15:41 108 H 18 143/93 H 98 10/04/19 12:58 98.2 F 92 18 140/81 H 98 10/04/19 12:00 88 18 134/77 H 98 10/04/19 11:09 98.4 F 86 16 138/79 H 96 10/04/19 10:00 85 18 131/80 H 96 Intake & Output: Intake & Output 10/01/19 10/02/19 10/03/19 10/04/19 23:59 23:59 23:59 23:59 Intake Total 580 2625.000 3074.167 Output Total 100 1105 3745 Balance 480 1520.000 -670.833 - Objective General Appearance: positive: No acute distress Respiratory: positive: No respiratory distress, Breath sounds nml Cardiovascular: positive: Regular rate & rhythm Abdomen: positive: No distention, Other (Appropriately tender with fundus firm below the umbilicus. Dressing in place; clean/dry/ intact.) Skin: positive: Color nml Extremities: positive: Pedal edema (Mild) Neurologic/Psychiatric: positive: Oriented x3 - Lab Results Fish Bones: 10/04/19 05:36 10/04/19 05:36 Other Labs: Lab Results x24hrs 10/04/19 10/04/19 10/04/19 Range/Units 05:36 05:36 05:36 WBC 18.2 H (4.8-10.8) x10^3/uL RBC 3.75 L (4.20-5.40) 10^6/uL Hgb 10.1 L (12.0-16.0) g/dL Hct 29.9 L (37.0-47.0) % MCV 79.7 L (81.0-99.0) fL MCH 26.9 L (27.0-31.0) pg MCHC 33.8 (32.0-36.0) g/dL RDW 17.1 H (12.0-15.0) % Plt Count 111 L (130-450) 10^3/uL MPV 11.7 H (7.9-10.8) fL Neut # (Auto) 15.7 H (1.5-6.6) 10^3/uL Lymph # (Auto) 1.2 L (1.5-3.5) 10^3/uL [place] # (Auto) 1.1 H (0.0-1.0) 10^3/uL Eos # (Auto) 0.0 (0.0-0.7) 10^3/uL Baso # (Auto) 0.1 (0.0-0.1) 10^3/uL Absolute Nucleated RBC 0.00 x10^3/uL Nucleated RBC % 0.0 /100WBC Creatinine 1.3 H (0.4-1.0) mg/dL Estimated GFR (MDRD) 46 L (>89) Magnesium 8.0 H* (1.7-2.8) mg/dL AST 23 (10-42) IU/L Assessment/Plan - Problem List (1) deliv NOS-unsp Impression: Postop day 1 status post LT CS with complicated by severe range blood pressures/severe preeclampsia. Preeclampsia: -Denies symptoms -Blood pressures in mild range. Mild elevation after normal range pressures overnight. -Starting labetalol 100 mg p.o. twice daily. -Discontinuing magnesium -We will check creatinine levels with a.m. labs Postop: -Discontinue Beatty catheter -Encourage ambulation -Transition to p.o. pain meds -Tolerating p.o. Continue inpatient care
[2019-10-05] MEDS: ACETAMINOPHEN 325 MG TABLET PO PRN ×3 (02:32→15:27)
[2019-10-05] MEDS: oxyCODONE 5 MG TABLET PO PRN ×3 (03:19→15:27)
[2019-10-05 06:27] LABS: BASOPHILS % (AUTO) 0.2 %; EOSINOPHILS % (AUTO) 0.2 %; HGB - HEMOGLOBIN 8.7 g/dL (12.0-16.0); LYMPHOCYTES # (AUTO) 1.3 10^3/uL (1.5-3.5); LYMPHOCYTES % (AUTO) 10.5 %; MEAN CORPUSCULAR HEMOGLOBIN 27.1 pg (27.0-31.0); MEAN CORPUSCULAR HGB CONC 32.7 g/dL (32.0-36.0); MEAN CORPUSCULAR VOLUME 82.9 fL (81.0-99.0); MEAN PLATELET VOLUME 11.6 fL (7.9-10.8); MONOCYTES # (AUTO) 0.8 10^3/uL (0.0-1.0); MONOCYTES % (AUTO) 6.6 %; NEUTROPHILS # (AUTO) 10.5 10^3/uL (1.5-6.6); NEUTROPHILS % (AUTO) 81.9 %; PLT - PLATELET COUNT 125 10^3/uL (130-450); RED BLOOD COUNT 3.21 10^6/uL (4.20-5.40); RED CELL DISTRIBUTION WIDTH 17.3 % (12.0-15.0); WHITE BLOOD COUNT 12.8 x10^3/uL (4.8-10.8)
[2019-10-05 06:38] LABS: ALBUMIN 2.2 g/dL (3.2-5.5); ALBUMIN/GLOBULIN RATIO 0.8 (1.0-2.2); BILIRUBIN,TOTAL 0.4 mg/dL (0.2-1.0); CALCIUM 7.3 mg/dL (8.5-10.3); TOTAL PROTEIN 4.8 g/dL (6.7-8.2)
[2019-10-05] MEDS: DOCUSATE SODIUM 100 MG CAPSULE PO SCH (07:41)
[2019-10-05] MEDS: LABETALOL 100 MG TABLET PO SCH (07:41)
[2019-10-05 13:01] VITALS: BP 128/77
[2019-10-05] MEDS ORDERED: MEASLES,MUMPS & RUBELLA VACC 0.5 ML VIAL SUBQ ONE (14:00)
--- NOTE | 2019-10-05 17:56 | Labor Flowsheet ---
Labor Flowsheet Datetime Report Generated by CPN: 10/05/2019 17:55 Datetime: 10/03/2019 12:19 UTERINE ACTIVITY Monitor Mode: Internal Frequency (min): Occasional Duration (sec): 120 Pattern: Normal: <= 5 Contractions in 10 Minutes Resting Tone (Palpate): Relaxed ASSESSMENT A Monitor Mode: External US FHR Baseline Rate : 135 Variability: Moderate 6-25 bpm Accelerations: 10X10 Decelerations: None Category: Category I Oxygen Method: Room Air Stage 2 Comments: Patient going to OR for Datetime: 10/03/2019 12:16 VITAL SIGNS NBP Sys/Mya/Mean (mmHg): 123 : 66 : 79 Pulse: 90 LaborFlag: Labor Datetime: 10/03/2019 12:00 Respirations: 18 Temperature (C): 37.0 Medication Comments: Mag sulfate off per [employer] Datetime: 10/03/2019 11:50 COMMUNICATION Communication: Provider at Bedside Communication Comments: M Scott, [employer], at bedside Datetime: 10/03/2019 11:22 MEDICATIONS Pitocin (milliunits): Discontinued Datetime: 10/03/2019 11:15 Contraction Comments: Pushing Datetime: 10/03/2019 11:11 Pushing Position: Pushing Left Side Datetime: 10/03/2019 10:20 SpO2 (%): 99 Datetime: 10/03/2019 10:00 Quality: Strong Datetime: 10/03/2019 09:14 STAGE 2 Pushing: Urge to Push Pushing Progress: Descent with Pushing Datetime: 10/03/2019 09:11 Vaginal Exam Comments: Posterior lip Datetime: 10/03/2019 09:00 [place] Units (mmHg): 190 Datetime: 10/03/2019 08:05 Magnesium/Antihypertensives: Magnesium Sulfate IV (Gm/hr) @ 2 Datetime: 10/03/2019 08:00 Monitor Interventions for UA: IUPC Inserted Datetime: 10/03/2019 07:23 PATIENT CARE IV/Blood Work: IV Started Patient Care Comments: Right forearm Datetime: 10/03/2019 07:00 Pitocin Checklist: At Least 1 Acceleration of 15 bpm x 15 Seconds in 30 Minutes or Adequate Variabi lity Monitor Interventions for FHR: Ultrasound Adjusted FHR Baseline Changes: No Baseline Change Datetime: 10/03/2019 06:57 Vital Sign Comments: Dr Baron aware of BP gave orders to Mirian Datetime: 10/03/2019 06:18 VAGINAL EXAM Dilatation (cm): 10.0 Datetime: 10/03/2019 05:54 Anesthesia Comments: anesthesia here to eval epidural Datetime: 10/03/2019 05:15 Pain Presence: Intermittent Datetime: 10/03/2019 05:14 PAIN Pain Scale: 5 Pain Type: Pressure Datetime: 10/03/2019 04:44 Pain Assessment Comments: pushing the PCEA button Anesthesia Level Check: T10- Umbilicus Datetime: 10/03/2019 04:43 Effacement (%): 100 Station: 0 Exam by: [email or web address] Datetime: 10/03/2019 04:29 Patient Position/Activity: Left Lateral Datetime: 10/03/2019 03:26 Provider Reviewed Strip: Yes Datetime: 10/03/2019 03:23 Stage of : Labor Datetime: 10/03/2019 03:01 Comments: tele monitor switched Datetime: 10/02/2019 23:31 TEACHING Instructional Method: Verbal Plan of Care: Induction Unit Routine: Medications Datetime: 10/02/2019 22:03 ANESTHESIA Anesthesia Plans: Epidural Anesthesia Interview: E Datetime: 10/02/2019 20:15 Actions for Decelerations: IV Bolus Datetime: 10/02/2019 19:40 MATERNAL ASSESSMENT Level of Consciousness: Fully Conscious Headache: Denies Breath Sounds, Left: Clear and Equal Breath Sounds, Right: Clear and Equal Nausea/Vomiting: Denies RUQ Epigastric Pain: Denies Datetime: 10/02/2019 19:29 Temperature Route: Oral Datetime: 10/02/2019 18:21 Membrane Status: Ruptured Membranes Rupture Method: Artificial Amniotic Fluid Color: Clear Amniotic Fluid Amount: Moderate Vaginal Bleeding: Normal Show Cervix, Consistency: Soft Cervix, Position: Midposition Datetime: 10/02/2019 17:36 Notification Reason: Status Update; Status; Labor Status Datetime: 10/02/2019 15:55 I/O Interventions: Beatty Cath Inserted Datetime: 10/02/2019 15:37 Pain Relief Measures: Epidural Given Epidural Procedure Other: Pump Started Datetime: 10/02/2019 15:31 Epidural Procedure: Loading Dose Datetime: 10/02/2019 15:18 PROCEDURE TIME OUT Procedure Verify: Correct Patient Identity; Accurate Procedure Consent Form; Agreement on Procedure to be Done; Correct Patient Position; Addressed Need to Administer Antibiotics or Fluids for Irrigat ion; Safety Precautions Based on Patient History or Medication Use Epidural Positioning: Sitting Datetime: 10/02/2019 15:01 Pain Coping: Requesting Pain Medication or Epidural Datetime: 10/02/2019 14:22 Comfort Measures: Breathing/Relaxation
--- NOTE | 2019-10-18 14:53 | DISCHARGE SUMMARY ---
"Discharge Summary Admit Date: 10/02/19 Discharge Date: 10/05/19 Discharging Provider: Tod Condition at Discharge: Stable Discharge Disposition: 01 Home, Self Care Discharge [facility] Name: [facility] - DIAGNOSES Admission Diagnoses: IUP at 40+5 wga Labor - HPI History of Present Illness: Patient is a 38 yo who presented with painful contractions at 40+5 wga Has had prodromal labor for several days. Initial SVE was 2/70/-3. Given pending post-dates status, as well as level of discomfort and prolonged latent stage, she was offered admission for cervical ripening/induction. has been complicated by unsure dating ( based on 19w6d us) abnormal glucola with normal 3H OGTT and equivocal rubella immune status. She is GBS negative and Rh positive - CONSULTS | PROCEDURES Procedures: Primary low transverse on 10/02/2019. Gisela Baron MD delivering provider - HOSPITAL COURSE Hospital Course: Patient is a 38 yo admitted at 40+5 wga in prodromal labor for augmentation. She underwent cervical ripening with a Beatty balloon, then underwent artifical rupture of membranes, and then had pitocin augmentation to a max dose of 10 mU/min. Proceeded to complete dilation with a migrating posterior cervical lip. An IUPC was placed and adequate contraction pattern was observed. She pushed well for 3.5 hours in total with failure to descend. Decision was made to proceed with primary . During the course of her labor, she developed blood pressures in the severe range and received at IV antihypertensives on 3 occasions. She was started on a magnesium infusion. Procedure was well tolerated and without complication. Magnesium infusion was continued for 24 hours after delivery. Creatinine which had become elevated to 1.44 during labor course had trended down to 1.0 on 10/05/2019. Patient was discharged on labetalol 100 mg p.o. twice daily for mild range blood pressures. She was discharged home on 10/05/19. - ALLERGIES Allergies/Adverse Reactions: Allergies Allergy/AdvReac Type Severity Reaction Status Date / Time No Known Drug Allergies Allergy Unverified 10/02/19 12:07 - PHYSICAL EXAM AT DISCHARGE General Appearance: positive: No acute distress Respiratory: positive: No respiratory distress Cardiovascular: positive: Regular rate & rhythm Abdomen: positive: Non-tender, Other (Incision CDI) Extremities: positive: Non-tender Neurologic/Psychiatric: positive: Oriented x3 - LABS Result Diagrams: 10/05/19 05:38 10/05/19 05:38 - FOLLOW UP Follow Up: 3 days for BP check - TIME SPENT Time Spent in Discharge (Minutes): 30"
== END 2019-10-05 17:54 | disposition home or self-care (01) | DRG 788 ==
LOC: WFO 08:32 → FBP 08:34 → WFO 11:50 → FBP 11:51 → OBSVTOIN 15:03 → FBP 10-03 13:31
PROVIDERS: ADMIT Obstetrics & Gynecology; ATTEND Obstetrics & Gynecology
PROC: 0U7C7ZZ Dilation of Cervix, Via Natural or Artificial Opening (ICD-10-PCS; 2019-10-02)
PROC: 10907ZC Drainage of Amniotic Fluid, Therapeutic from Products of Conception, Via Natural or Artificial Opening (ICD-10-PCS; 2019-10-02)
PROC: 10D00Z1 Extraction of Products of Conception, Low, Open Approach (ICD-10-PCS; principal; 2019-10-03 12:00)
DX: O48.0 Post-term pregnancy (principal); O14.14 Severe pre-eclampsia complicating childbirth; O62.1 Secondary uterine inertia; O75.81 Maternal exhaustion complicating labor and delivery; Z37.0 Single live birth; Z3A.40 40 weeks gestation of pregnancy
CPT/HCPCS: 36415; 80048; 80053; 82565; 83615; 83735; 84450; 84550; 85025; 85027; 86850; 86900; 86901; 99213; A9270; G0378; J7120